=== PATIENT | male | born 2000 | race Hispanic/Latino ===

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

== ENCOUNTER 2022-09-02 23:47 | Emergency (ER) | payer OTHER ==
[2022-09-03 00:16] LABS: #Basophils 0.1 thou/uL (0.0-0.2); #Eosinphils 0.2 thou/uL (0.0-0.7); #Neutrophils 6.3 thou/uL (1.40-6.50); %Basophils 0.9 % (0.0-1.0); %Eosinophils 2.2 % (0.0-10.0); %Monocytes 9.9 % (0.0-4.0); %Neutrophils 61.8 % (31.0-61.0); Hemoglobin 14.3 g/dL (14.0-18.0); Mean Corpuscular HGB CONC 34.9 g/dL (32.0-36.0); Mean Corpuscular Volume 86.1 fl (78.0-98.0); Mean Platelet Volume 10.7 fL (7.4-10.4); Platelet Count 260 10x3/uL (130-400); Red Blood Cell (RBC) Count 4.76 mill/uL (4.00-5.20); White Blood Cell (WBC) Count 10.1 10x3/uL (4.8-10.8)
[2022-09-03] MEDS ORDERED: diphenhydrAMINE 50 MG/ML VIAL ONE (00:18)
[2022-09-03] MEDS ORDERED: Metoclopramide HCl 10 MG/2 ML VIAL ONE (00:18)
[2022-09-03] MEDS ORDERED: Ketorolac Tromethamine 30 MG/ML VIAL ONE (00:18)
[2022-09-03 00:41] LABS: ALT (SGPT) 13 U/L (8-55); AST (SGOT) 21 U/L (5-34); Alkaline Phosphatase 84 U/L (50-130); Anion Gap 14 mmol/L (10-20); BUN (Urea Nitrogen) 14 mg/dL (8.9-20.6); Bilirubin, Total 0.5 mg/dL (0.2-1.2); Calc. Creatinine Clearance 0 mL/min (70-130); Chloride 104 mmol/L (98-107); Estimated GFR 107; Globulin 2.6 g/dL (2.4-3.5); Glucose 108 mg/dL (70-105); Potassium 3.4 mmol/L (3.5-5.1); Protein, Total 7.6 g/dL (6.0-8.3); Sodium 141 mmol/L (136-145)
[2022-09-03 00:47] LABS: Carbon Dioxide 26 mmol/L (22-29)
== END 2022-09-03 01:19 | disposition home or self-care (01) ==
LOC: ERS 23:47
DX: R51.9 Headache, unspecified (principal)
CPT/HCPCS: 80053; 85025; 96374; 96375; J1200; J1885; J2765

== ENCOUNTER 2023-02-11 14:08 | Emergency (ER) | payer OTHER ==
[2023-02-11 15:20] LABS: Troponin I Less than 0.010 ng/mL (< 0.028)
== END 2023-02-11 15:58 | disposition home or self-care (01) ==
LOC: ERS 14:08
DX: R07.89 Other chest pain (principal); X50.1XXA Overexertion from prolonged static or awkward postures, initial encounter; Y99.0 Civilian activity done for income or pay
CPT/HCPCS: 36415; 71045; 84484; 93005

== ENCOUNTER 2023-06-29 14:07 | Emergency (ER) | payer OTHER | END 2023-06-29 15:33 | disposition home or self-care (01) | LOC: ERS 14:07 | DX: I89.1 Lymphangitis (principal) | CPT/HCPCS: 99282 ==